=== PATIENT | male | born 1960 | race Caucasian/White ===

== ENCOUNTER 2017-02-10 19:45 | Emergency (ER) | payer MEDICARE, BC ==
[2017-02-10] MEDS ORDERED: Sodium Chloride 0.9% 1,000 ML IV SCH (20:00)
--- NOTE | 2017-02-10 20:00 | EDM.PDOC ---
ED HPI GENERAL MEDICAL PROBLEM - General Chief Complaint: Cardiovascular Problem Stated Complaint: [facility] Time Seen by Provider: 02/10/17 19:55 Source of Information: Reports: Patient, EMS History Limitations: Reports: No Limitations - History of Present Illness INITIAL COMMENTS - FREE TEXT/NARRATIVE: 57-year-old male presents to the ED after his pacemaker defibrillator discharged twice within the last half hour. He states it happened about 12 seconds apart. Initial discharge was probably around He states the pacemaker is beeped twice today but did not necessarily fire until tonight. He feels a some shortness of breath and feels like he got kicked in his left anterior chest. Does not feel dizzy or lightheaded this time. The paramedics arrived his heart rate was as low as 30/min.BP is well maintatined. It has gradually returned to fully paced rhythm at 70/m. He has an atrial sensed ventricular paced rhythm on current ECG. Current pacemaker is been in for about 2 years. This is his third one. Initial defibrillator/pacemaker was placed in 2005. To his knowledge the defibrillator has never gone off in the past. He reports his pacemaker made a musical tone about 1830 hrs. and then again shortly before it went off. The first time he was able to hang onto the counter not go to the floor. When it discharge the second time he went down to the floor without a significant fall. States he was very dizzy lightheaded and vision was dimming black for a short period of time. Onset: Today, Sudden Onset Date: 02/10/17 Onset Time: 19:30 Duration: Minutes: Location: Reports: Chest Quality: Reports: Ache, Pressure. Denies: Same as Previous Episode, Sharp, Stabbing, Throbbing, Other Severity: Moderate Improves with: Reports: None Worsens with: Reports: None Context: Reports: Other (Defibrillator pacemaker discharge twice within about 10 -12 seconds apart starting at 1930 hrs. tonight.). Denies: Activity, Exercise, Lifting, Sick Contact, Trauma Associated Symptoms: Reports: Chest Pain. Denies: Confusion, Cough, cough w sputum, Diaphoresis, Fever/Chills, Headaches, Loss of Appetite, Malaise, Nausea/ Vomiting, Seizure, Shortness of Breath, Syncope, Weakness Treatments STACKER: Reports: Other (see below) (None.) - Related Data Allergies Allergy/AdvReac Type Severity Reaction Status Date / Time diazepam [From Valium] Allergy Nausea and Verified 02/10/17 19:58 Vomiting Home Meds: Home Meds . 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 Subsequently he's had 2 further replacements due to battery failure.) , Heart Failure, High Cholesterol, Hypertension, Pacemaker, SOB on Exertion. Denies: Heart Murmur, Heart Valve Replacement, SC, Prior Cardiac Arrest, PTCA, Pulmonary Hypertension, PVD, Stents (Chronically), Syncope Endocrine/Metabolic History: Reports: Obesity/BMI 30+ Social & Family History - Living Situation & Occupation Living situation: Reports: Occupation: Employed ED ROS GENERAL - Review of Systems Review Of Systems: See Below Constitutional: Reports: Fatigue. Denies: Fever, Chills, Malaise, Weakness, Decreased Appetite, Weight Loss HEENT: Reports: No Symptoms Respiratory: Reports: Shortness of Breath. Denies: Wheezing, Pleuritic Chest Pain (Mild), Cough, Sputum, Hemoptysis Cardiovascular: Reports: Chest Pain, Blood Pressure Problem (Since the defibrillator has gone off. Blood pressure usually well controlled with medications. He is hypertensive at this time likely from adrenaline), Dyspnea on Exertion, Lightheadedness. Denies: Claudication, Edema (After the second defibrillation today.), Orthopnea ( after the defibrillator pacemaker has gone off twice.), Palpitations (Chronically) Endocrine: Reports: Fatigue GI/Abdominal: Reports: No Symptoms : Reports: Frequency Musculoskeletal: Reports: Back Pain Skin: Reports: No Symptoms Neurological: Reports: No Symptoms Psychiatric: Reports: No Symptoms Hematologic/Lymphatic: Reports: No Symptoms Immunologic: Reports: No Symptoms ED EXAM, GENERAL - Physical Exam Exam: See Below Exam Limited By: No Limitations General Appearance: Alert, WD/WN, Anxious, Moderate Distress Eye Exam: Bilateral Eye: Normal Inspection Nose: Normal Inspection, Normal Mucosa, No Blood. No: Nasal Tenderness, Nasal Deformity Throat/Mouth: Normal Inspection, Normal Lips, Normal Teeth, Normal Oropharynx Head: Atraumatic, Normocephalic Neck: Normal Inspection, Supple, Non-Tender, Full Range of Motion. No: Lymphadenopathy (L), Lymphadenopathy (R) Respiratory/Chest: No Respiratory Distress, No Accessory Muscle Use, Rales, Other (Chest wall tenderness around the pacemaker defibrillator site. This is in the left upper anterior chest.). No: Rhonchi, Wheezing Cardiovascular: Normal Peripheral Pulses, Irregularly Irregular (Rate will be anywhere from 26-67/m.). No: Regular Rate, Rhythm Peripheral Pulses: 2+: Posterior Tibial (L), Posterior Tibial (R), Dorsalis Pedis (L), Dorsalis Pedis (R) GI/Abdominal: Normal Bowel Sounds, Other (Abdomen is distended and firm to palpation due to obesity. This lends ability to palpate any solid organs. No obvious masses or hernias identified.) Back Exam: Normal Inspection, Full Range of Motion. No: CVA Tenderness (L), CVA Tenderness (R) Extremities: Normal Inspection, Normal Range of Motion, Pedal Edema (1-2+ pitting edema lower extremity in mid tib-fib and distally.) Neurological: Alert, Oriented, CN II-XII Intact, Normal Cognition Psychiatric: Normal Affect, Normal Mood Skin Exam: Warm, Intact, Normal Color, No Rash EKG INTERPRETATION EKG Date: 02/10/17 Time: 19:50 Rhythm: Other (100% atrial sensed ventricular paced rhythm at 67/m.) Anderson: RAD-Right Anderson Deviation P-Wave: Absent EKG Interpretation Comments: No further analysis attempted. Course - Vital Signs Last Recorded V/S: Last Vital Signs Temp 36.4 C 02/10/17 19:49 Pulse 74 02/10/17 21:31 Resp 12 02/10/17 19:49 BP 202/119 H 02/10/17 21:31 Pulse Ox 100 02/10/17 19:49 - Orders/Labs/Meds Orders: Active Orders 24 hr Category Date Time Status EKG Documentation Completion [RC] STAT Care 02/10/17 19:56 Active Chest 1V Frontal [CR] Stat Exams 02/10/17 19:55 Ordered Nitroglycerin/D5W [Nitroglycerin 25 MG/D5W 250 ML] Med 02/10/17 21:00 Active 10 mg in 100 ml IV TITRATE Potassium Chloride [KCl 10 MEQ in Water 100 ML] 10 meq Med 02/10/17 21:00 Active Premix Bag 1 bag IV ASDIRECTED Sodium Chloride 0.9% [Normal Saline] 1,000 ml Med 02/10/17 20:00 Active IV ASDIRECTED Medication Orders Sodium Chloride (Normal Saline) 1,000 mls @ 100 mls/hr IV ASDIRECTED RAJ Last Admin: 02/10/17 20:07 Dose: 100 mls/hr Nitroglycerin/Dextrose (Nitroglycerin 25 Mg/D5w 250 Ml) 10 mg in 100 mls @ 6 mls/hr IV TITRATE RAJ; 10 MCG/MIN PRN Reason: Protocol Last Admin: 02/10/17 21:08 Dose: 10 mcg/min, 6 mls/hr Potassium Chloride 10 meq/ (Premix) 100 mls @ 200 mls/hr IV ASDIRECTED RAJ Last Infusion: 02/10/17 21:01 Dose: 100 mls/hr Admin: 02/10/17 20:55 Dose: 200 mls/hr Labs: Laboratory Tests 02/10/17 02/10/17 02/10/17 Range/Units 19:50 19:50 19:50 WBC 12.88 H (4.23-9.07) K/mm3 RBC 4.34 L (4.63-6.08) M/mm3 Hgb 13.1 L (13.7-17.5) gm/L Hct 38.6 L (40.1-51.0) % MCV 88.9 (79.0-92.2) fl MCH 30.2 (25.7-32.2) pg MCHC 33.9 (32.2-35.5) g/dl RDW Std Deviation 42.8 (35.1-43.9) fL Plt Count 226 (163-337) K/mm3 MPV 10.6 (9.4-12.3) fl Neutrophils % (Manual) 52 (40-60) % Band Neutrophils % 0 (0-10) % Lymphocytes % (Manual) 35 (20-40) % Atypical Lymphs % 0 % Monocytes % (Manual) 10 (2-10) % Eosinophils % (Manual) 2 (0.8-7.0) % Basophils % (Manual) 1 (0.2-1.2) Platelet Estimate Adequate RBC Morph Comment Normal PT 10.4 (8.0-13.0) SECONDS INR 0.96 Sodium 142 (136-145) mEq/L Potassium 3.3 L (3.5-5.1) mEq/L Chloride 106 (98-107) mEq/L Carbon Dioxide 27 (21-32) mEq/L Anion Gap 12.3 (5-15) BUN 23 H (7-18) mg/dL Creatinine 1.2 (0.7-1.3) mg/dL Est Cr Clr Drug Dosing 71.47 mL/min Estimated GFR (MDRD) > 60 (>60) mL/min BUN/Creatinine Ratio 19.2 H (14-18) Glucose 116 H (74-106) mg/dL Calcium 8.2 L (8.5-10.1) mg/dL Magnesium (1.8-2.4) mg/dl Total Bilirubin 0.6 (0.2-1.0) mg/dL AST 33 (15-37) U/L ALT 46 (16-63) U/L Alkaline Phosphatase 83 (46-116) U/L CK-MB (CK-2) 0.9 (0-3.6) ng/ml Troponin I < 0.017 (0.00-0.056) ng/mL B-Natriuretic Peptide (0-100) pg/mL Total Protein 6.5 (6.4-8.2) g/dl Albumin 3.4 (3.4-5.0) g/dl Globulin 3.1 gm/dL Albumin/Globulin Ratio 1.1 (1-2) 02/10/17 02/10/17 Range/Units 19:50 19:50 WBC (4.23-9.07) K/mm3 RBC (4.63-6.08) M/mm3 Hgb (13.7-17.5) gm/L Hct (40.1-51.0) % MCV (79.0-92.2) fl MCH (25.7-32.2) pg MCHC (32.2-35.5) g/dl RDW Std Deviation (35.1-43.9) fL Plt Count (163-337) K/mm3 MPV (9.4-12.3) fl Neutrophils % (Manual) (40-60) % Band Neutrophils % (0-10) % Lymphocytes % (Manual) (20-40) % Atypical Lymphs % % Monocytes % (Manual) (2-10) % Eosinophils % (Manual) (0.8-7.0) % Basophils % (Manual) (0.2-1.2) Platelet Estimate RBC Morph Comment PT (8.0-13.0) SECONDS INR Sodium (136-145) mEq/L Potassium (3.5-5.1) mEq/L Chloride (98-107) mEq/L Carbon Dioxide (21-32) mEq/L Anion Gap (5-15) BUN (7-18) mg/dL Creatinine (0.7-1.3) mg/dL Est Cr Clr Drug Dosing mL/min Estimated GFR (MDRD) (>60) mL/min BUN/Creatinine Ratio (14-18) Glucose (74-106) mg/dL Calcium (8.5-10.1) mg/dL Magnesium 1.9 (1.8-2.4) mg/dl Total Bilirubin (0.2-1.0) mg/dL AST (15-37) U/L ALT (16-63) U/L Alkaline Phosphatase (46-116) U/L CK-MB (CK-2) (0-3.6) ng/ml Troponin I (0.00-0.056) ng/mL B-Natriuretic Peptide 65 (0-100) pg/mL Total Protein (6.4-8.2) g/dl Albumin (3.4-5.0) g/dl Globulin gm/dL Albumin/Globulin Ratio (1-2) Meds: Medications Generic Name Dose Route Start Last Admin Trade Name Freq PRN Reason Stop Dose Admin Sodium Chloride 1,000 mls @ 100 mls/hr 02/10/17 20:00 02/10/17 20:07 Normal Saline IV 100 mls/hr ASDIRECTED RAJ Administration Nitroglycerin/Dextrose 10 mg in 100 mls @ 6 mls/hr 02/10/17 21:00 02/10/17 21 :08 Nitroglycerin 25 Mg/D5w 250 Ml IV 10 mcg/min TITRATE RAJ 6 mls/hr Protocol Administration 10 MCG/MIN Potassium Chloride 10 meq/ 100 mls @ 200 mls/hr 02/10/17 21:00 02/10/17 21:01 Premix IV 100 mls/hr ASDIRECTED RAJ Infusion Discontinued Medications Generic Name Dose Route Start Last Admin Trade Name Freq PRN Reason Stop Dose Admin Labetalol HCl 20 mg 02/10/17 21:26 02/10/17 21:31 Normodyne IVPUSH 02/10/17 21:27 20 mg ONETIME ONE Administration Protocol Metoprolol Tartrate 5 mg 02/10/17 20:20 Lopressor IVPUSH 02/10/17 20:21 ONETIME ONE - Radiology Interpretation Free Text/Narrative:: 57-year-old male presents the ED per ambulance after his defibrillator pacemaker discharge twice within a period of about 10-12 seconds. He states the pacemaker made an unusual musical tone about 1830 hrs. today and then again shortly before the it discharged. First time the discharged he was able to hang onto the counter top of the second time but him down to the floor and vision became very Dim an black for a period of time. States his chest hurts from the defibrillator going off feels like he got kicked in the chest. Mild associated shortness of breath. 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 It is never defibrillated in the past. Denies any recent changes in medications. He missed his last follow -up echocardiogram which was scheduled for December. He is to be rescheduled this month for an echo. He does not know what is ejection fraction usually is. He did not take his Lasix medication this morning. He is not sure about some of his other medications he knows he is on carvedilol and he believes a a sore arm inhibitor. Also niacin in the evening for his elevated triglycerides. He is not a diabetic and he does not smoke cigarettes. Currently has rhythm is irregularly irregular with heart rate dipping down as low as 26/m. He is 100% atrial sensed ventricular paced looks like set at about 70/m. He is hypertensive upon arrival. Heart rate would dip as low as 26-35-4 and 42 and stay there for a period of time. It appears the pacemaker is not kicking in her functioning as it should. It's unclear to me whether the pacemaker will malfunction after it has defibrillator has discharged twice. I did contact welcomes furniture upholsterer at [facility] in [place]. He felt no further medications are indicated at this time until we get back his electrolytes to see if there is anything that we can correct. My concern is that the pacemaker appears to be malfunctioning with the rates traveling as low as 26 and 30/m without the pacemaker kicking in immediately. Pacemaker to be interrogated. - Re-Assessments/Exams Free Text/Narrative Re-Assessment/Exam: 02/10/17 20:540: Pacemaker appears to be functioning a bit better at this time staying around 70/m. He remains hypertensive however with 170 /120. I'm going to therefore start him on a nitro drip at 10 g per minute to lower his blood pressure acutely. Lab work is back and reveals a slightly elevated white count at 12.88. Normal differential hemoglobin 13.1 hematocrit of 38.6. Pravastatin 26 ,000. PT is 10.4 INR is normal 0.96. Sodium 142 potassium slightly low at 3.3. I will hang potassium supplement 10 mg over the next hour. Chloride is 106 . Bicarbonate 27. Creatinine is 1.2 glucose is 116. Magnesium is normal 1.9. BNP is 65. Cardiac markers are normal at this time. Still trying to get access to his current med list. Chest x-ray is still pending. 02/10/17 21:30: Interrogation of the pacemaker by [employer] personnel identified that there is a malfunction in the right ventricular lead. Ears that is cracked. It is over sensing the heart is going faster than really is and therefore is not sending apace signal at times there for the heart rate is drifting as low as 26/m. Adjustments were made over the phone to make the left lead more dominant and do more sensing and pacing. Basically trying to override the right ventricular lead. He therefore requires a new pacemaker defibrillator to be placed. [employer] person Mr. Acacia Mitchell will be in contact with Dr. [place] furniture upholsterer telecommunications network engineer at [facility] and will make arrangements for transfer to that facility. Pressure still remains quite high with diastolic is a high as 124 even on the nitro drip at 10 mg/m. I will therefore give him labetalol 20 mg IV push. He is IV nitroglycerin drip will be titrated upwards by paramedics en route to [place] to achieve a blood pressure 160-165 systolically and 90--95 diastolically. Pacemaker seems to be functioning better since adjustments were made to make the left lead more dominant in terms of sensing and pacing.Dr Cisneros has aceepted care. Copy of his CXR was sent erlectronically through the PACs system. Departure - Departure Time of Disposition: 21:44 Disposition: DC/Tfer to Acute Hospital 02 Reason for Transfer *Q: Other Condition: Fair Clinical Impression: Pacemaker lead malfunction Qualifiers: Encounter type: initial encounter Qualified Code(s): T82.110A - Breakdown ( mechanical) of cardiac electrode, initial encounter Referrals: PCP,None [Primary Care Provider] - Forms: ED Department Discharge Additional Instructions: Travel to [facility] in [facility] to be admitted to the hospital for replacement of [facility] pacemaker /defibrillator due to malfunction. - My Orders Last 24 Hours: My Active Orders 02/10/17 19:55 Chest 1V Frontal [CR] Stat 02/10/17 19:56 EKG Documentation Completion [RC] STAT 02/10/17 20:00 Sodium Chloride 0.9% [Normal Saline] 1,000 ml IV ASDIRECTED 02/10/17 21:00 Nitroglycerin/D5W [Nitroglycerin 25 MG/D5W 250 ML] 10 mg in 100 ml IV TITRATE Potassium Chloride [KCl 10 MEQ in Water 100 ML] 10 meq Premix Bag 1 bag IV ASDIRECTED - Assessment/Plan Last 24 Hours: My Active Orders 02/10/17 19:55 Chest 1V Frontal [CR] Stat 02/10/17 19:56 EKG Documentation Completion [RC] STAT 02/10/17 20:00 Sodium Chloride 0.9% [Normal Saline] 1,000 ml IV ASDIRECTED 02/10/17 21:00 Nitroglycerin/D5W [Nitroglycerin 25 MG/D5W 250 ML] 10 mg in 100 ml IV TITRATE Potassium Chloride [KCl 10 MEQ in Water 100 ML] 10 meq Premix Bag 1 bag IV ASDIRECTED
[2017-02-10] MEDS ORDERED: Metoprolol Tartrate 5 MG/5 ML SDV IVPUSH ONE (20:20)
[2017-02-10] MEDS ORDERED: Potassium Chloride 10 MEQ in Premix Bag 1 BAG IV SCH (21:00)
[2017-02-10] MEDS ORDERED: NITROGLYCERIN IV SCH (21:00)
[2017-02-10] MEDS ORDERED: DEXTROSE IV SCH (21:00)
[2017-02-10] MEDS ORDERED: Labetalol 100 MG/20 ML MDV IVPUSH ONE (21:26)
[2017-02-10 21:32] VITALS: BP 202/119
--- NOTE | 2017-02-11 17:53 | CR ---
Chest: Portable view of the chest was obtained. Comparison: No previous chest x-ray. Heart size is within normal limits for portable technique. Mild tortuosity of the thoracic aorta is seen. AICD is present. Lungs are clear with no acute infiltrates. Bony structures are grossly intact. Impression: 1. Incidental findings. Nothing acute is identified on portable chest x-ray. Diagnostic code #2
== END 2017-02-10 22:00 ==
LOC: JD.ED 19:45
DX: T82.110A Breakdown (mechanical) of cardiac electrode, initial encounter (principal); I11.0 Hypertensive heart disease with heart failure; I50.9 Heart failure, unspecified; E78.00 Pure hypercholesterolemia, unspecified; E66.9 Obesity, unspecified; Z88.8 Allergy status to other drugs, medicaments and biological substances
CPT/HCPCS: 36415; 71010; 80053; 82553; 83735; 83880; 84484; 85025; 85610; 93005; 96361; 96365; 96375; 99285; J3480; J7040; 96374